=== PATIENT | female | born 2000 | race Caucasian/White ===

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

== ENCOUNTER 2022-09-12 08:37 | Emergency (ER) | payer OTHER ==
[2022-09-12 08:46] VITALS: BP 111/57; PULSE 73; RESP 20; TEMP 97.6; BMI 33.8
== END 2022-09-12 10:15 | disposition home or self-care (01) ==
LOC: JERFT 08:37
DX: H60.391 Other infective otitis externa, right ear (principal)
CPT/HCPCS: 99281-25